=== PATIENT | female | born 1990 | race African-American/Black ===

== ENCOUNTER 2020-08-13 17:02 | Emergency (ER) | payer BC ==
[2020-08-13] MEDS ORDERED: ZIPRASIDONE MESYLATE 20 MG VIAL IM ONE (18:47)
[2020-08-13] MEDS ORDERED: ALUM-MAG HYDROXIDE-SIMETHICONE 200-200-20MG/5ML ORAL LIQD 30 ML PO PRN (18:49)
[2020-08-13] MEDS ORDERED: MAGNESIUM HYDROXIDE (MOM) ORAL LIQD UDC PO PRN (18:49)
[2020-08-13] MEDS ORDERED: ACETAMINOPHEN 325 MG TAB PO PRN (18:49)
[2020-08-13] MEDS ORDERED: WATER FOR INJ Sterile (PF) 10 ML ONE (19:16)
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
[2020-08-13 20:28] LABS: Bilirubin,Urine NEG (Negative); Blood,Urine NEG (Negative); Color,Urine Yellow (Yellow); Mucus,Urine 3+ /HPF
[2020-08-13 20:30] LABS: Amphetamine Screen,Urine Negative; Benzodiazepines Screen,Urine Negative; Cannabinoid Screen,Urine Negative; Cocaine Screen,Urine Negative; Methadone Screen,Urine Negative; Opiate Screen,Urine Negative
[2020-08-13 20:40] LABS: Basophils % (Auto) 0.6 % (0.0-1.8); Eosinophils % (Auto) 0.8 % (0.0-4.3); Hematocrit 44.7 % (30.3-42.9); Hemoglobin 15.6 gm/dl (10.1-14.3); Lymphocytes # (Auto) 1.2 K/mm3 (1.2-5.4); Lymphocytes % (Auto) 24.6 % (13.4-35.0); Mean Corpuscular HGB Conc 35 % (30-34); Mean Corpuscular Volume 103 fl (79-97); Monocytes # (Auto) 0.4 K/mm3 (0.0-0.8); Monocytes % (Auto) 8.1 % (0.0-7.3); Platelet Count 289 K/mm3 (140-440); Red Blood Count 4.32 M/mm3 (3.65-5.03); Red Cell Distribution Width 15.5 % (13.2-15.2)
[2020-08-13 21:08] LABS: Alanine Aminotransferase 18 units/L (7-56); Albumin 4.5 g/dL (3.9-5); Blood Urea Nitrogen 10 mg/dL (7-17); Calcium 8.8 mg/dL (8.4-10.2); Hemolysis Index 3
[2020-08-13 21:10] LABS: BUN/Creatinine Ratio 33
[2020-08-13] MEDS ORDERED: PHENYTOIN 100 MG CAPSULE.ER PO SCH (22:00)
[2020-08-14] MEDS ORDERED: LORazepam 2 MG/ML VIAL IM PRN (06:00)
[2020-08-14] MEDS ORDERED: ZIPRASIDONE MESYLATE 20 MG VIAL IM ONE (10:10)
[2020-08-14] MEDS ORDERED: WATER FOR INJ Sterile (PF) 10 ML ONE (10:12)
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
[2020-08-14 10:49] VITALS: BP 96/64
== END 2020-08-14 12:10 | disposition other institution (70) ==
LOC: ED 17:02
DX: R56.9 Unspecified convulsions (principal); F23 Brief psychotic disorder; F31.9 Bipolar disorder, unspecified
CPT/HCPCS: 36415; 80053; 80185; 80307; 81001; 84703; 85025; 96372; 99285; J2060; J3486; 80320; G0480

== ENCOUNTER 2020-08-30 14:32 | Inpatient (IN) | payer BC ==
--- NOTE | 2020-08-30 15:29 | Emergency Department Report ---
Blank Doc - Documentation Documentation: 29-year-old female that presents with bilateral leg swelling with pain. Left greater than right. Denies any trauma or injuries. 1- This initial assessment/diagnostic orders/clinical plan/ treatment(s) is/are subject to change based on pt's health status, clinical progression and re- assessment by fellow clinical providers in the ED. Further treatment and workup at subsequent clinical provers discretion. Patient/guardians urged not to elope from ED as their condition may be serious if not clinically assessed and managed. 2-labs 3-US doppler
--- NOTE | 2020-08-30 15:36 | XRay Report ---
CHEST 2 VIEWS INDICATION / CLINICAL INFORMATION: Jorge leg swelling. COMPARISON: None available. FINDINGS: SUPPORT DEVICES: None. HEART / MEDIASTINUM: No significant abnormality. LUNGS / PLEURA: No significant pulmonary or pleural abnormality. No pneumothorax. ADDITIONAL FINDINGS: No significant additional findings. IMPRESSION: 1. No acute findings. Signer Name: Arnold Jung MD Signed: 08/30/2020 3:32 PM Workstation Name: [id number]
--- NOTE | 2020-08-30 16:28 | Vascular Lab Report ---
DUPLEX DOPPLER LOWER EXTREMITY VEINS, BILATERAL INDICATION / CLINICAL INFORMATION: fransisco leg pain and swelling. TECHNIQUE: Duplex doppler imaging was performed through the veins of both lower extremities using venous olga anne and other maneuvers. COMPARISON: None available. FINDINGS: RIGHT COMMON FEMORAL VEIN: Negative. RIGHT FEMORAL VEIN: Negative. RIGHT POPLITEAL VEIN: Negative. RIGHT CALF VEINS: Negative. LEFT COMMON FEMORAL VEIN: Acute thrombus. LEFT FEMORAL VEIN: Acute thrombus. LEFT POPLITEAL VEIN: Acute thrombus. LEFT CALF VEINS: Acute thrombus. ADDITIONAL FINDINGS: None. IMPRESSION: 1. Long segment acute DVT left lower extremity 2. No DVT right lower extremity veins Signer Name: Aiden Chaves MD Signed: 08/30/2020 4:24 PM Workstation Name: [id number]
[2020-08-30 16:46] LABS: Basophils % (Auto) 0.4 % (0.0-1.8); Eosinophils # (Auto) 0.1 K/mm3 (0.0-0.4); Eosinophils % (Auto) 1.7 % (0.0-4.3); Hematocrit 37.6 % (30.3-42.9); Hemoglobin 13.3 gm/dl (10.1-14.3); Lymphocytes # (Auto) 1.1 K/mm3 (1.2-5.4); Lymphocytes % (Auto) 19.6 % (13.4-35.0); Mean Corpuscular HGB Conc 35 % (30-34); Mean Corpuscular Volume 102 fl (79-97); Monocytes # (Auto) 0.7 K/mm3 (0.0-0.8); Monocytes % (Auto) 12.5 % (0.0-7.3); Platelet Count 308 K/mm3 (140-440); Red Blood Count 3.67 M/mm3 (3.65-5.03); Red Cell Distribution Width 14.2 % (13.2-15.2)
[2020-08-30 17:06] LABS: INR 0.93 (0.87-1.13)
[2020-08-30 17:07] LABS: Partial Thromboplastin Time 24.9 Sec. (24.2-36.6)
[2020-08-30 17:09] LABS: Alanine Aminotransferase 17 units/L (7-56); Albumin 3.8 g/dL (3.9-5); BUN/Creatinine Ratio 22; Blood Urea Nitrogen 11 mg/dL (7-17); Calcium 8.5 mg/dL (8.4-10.2); Hemolysis Index 8
--- NOTE | 2020-08-30 18:18 | Emergency Department Report ---
ED Extremity Problem HPI - General Chief complaint: Extremity Problem,Nontraumatic Stated complaint: SWELLING TO BOTH LEGS Time Seen by Provider: 08/30/20 14:43 Source: patient Mode of arrival: Ambulatory Limitations: No Limitations - History of Present Illness Initial comments: 29-year-old female with history of seizure disorder, bipolar disorder, schi zophrenia, presents to ED with left leg swelling. Patient reports leg swelling x9 days. Patient states the swelling began following a 3-hour car ride from [place] to [place] in which she was sitting crosslegged during the car ride. Patient reports pain to the left leg and thigh and associated pins and needle sensation in her foot. She denies any chest pain. She does reports some mild dyspnea on exertion. She denies ever having COVID-19. She denies any fever or cough. She denies any prior history of blood clots. She denies taking any control. MD Complaint: extremity pain, extremity swelling -: days(s) (9) Location: left, lower extremity Quality: aching Consistency: intermittent Improves with: nothing Worsens with: nothing Associated Symptoms: shortness of breath. denies: chest pain, fever - Related Data Home Medications Medication Instructions Recorded Confirmed Last Taken Phenytoin Sodium Extended 300 mg PO DAILY 08/14/20 08/30/20 Unknown Benztropine [Cogentin] 1 mg PO QHS 08/30/20 08/30/20 Unknown Cyproheptadine [Periactin] 5 mg PO BID 08/30/20 08/30/20 Unknown OXcarbazepine [Trileptal] 75 mg PO QDAY 08/30/20 08/30/20 Unknown risperiDONE [RisperDAL] 2 mg PO QHS 08/30/20 08/30/20 Unknown Allergies Allergy/AdvReac Type Severity Reaction Status Date / Time No Known Allergies Allergy Unverified 08/13/20 17:44 ED Review of Systems ROS: Stated complaint: SWELLING TO BOTH LEGS Other details as noted in HPI Comment: All other systems reviewed and negative Constitutional: denies: chills, fever Respiratory: shortness of breath. denies: cough Cardiovascular: denies: chest pain Musculoskeletal: as per HPI Neurological: paresthesias ED Past Medical Hx - Past Medical History Previous Medical History?: Yes Hx Seizures: Yes Hx Psychiatric Treatment: Yes (Bipolar disorder schizophrenia) - Social History Smoking Status: Never Smoker Substance Use Type: None - Medications Home Medications: Home Medications Medication Instructions Recorded Confirmed Last Taken Type Phenytoin Sodium Extended 300 mg PO DAILY 08/14/20 08/30/20 Unknown History Benztropine [Cogentin] 1 mg PO QHS 08/30/20 08/30/20 Unknown History Cyproheptadine [Periactin] 5 mg PO BID 08/30/20 08/30/20 Unknown History OXcarbazepine [Trileptal] 75 mg PO QDAY 08/30/20 08/30/20 Unknown History risperiDONE [RisperDAL] 2 mg PO QHS 08/30/20 08/30/20 Unknown History ED Physical Exam - General Limitations: No Limitations General appearance: alert, in no apparent distress - Head Head exam: Present: atraumatic, normocephalic - Eye Eye exam: Present: normal appearance, EOMI - ENT ENT exam: Present: mucous membranes moist - Neck Neck exam: Present: normal inspection - Respiratory Respiratory exam: Present: normal lung sounds bilaterally. Absent: respiratory distress - Cardiovascular Cardiovascular Exam: Present: normal rhythm, tachycardia - GI/Abdominal GI/Abdominal exam: Present: soft. Absent: distended, tenderness - Extremities Exam Extremities exam: Present: calf tenderness, other (tenderness to left lower leg w/ edema present; L leg > R leg) - Neurological Exam Neurological exam: Present: alert, oriented X3. Absent: motor sensory deficit - Psychiatric Psychiatric exam: Present: normal affect, normal mood - Skin Skin exam: Present: warm, dry, intact, normal color ED Course Vital Signs 08/30/20 08/30/20 14:39 19:30 Temperature 98.4 F 97.8 F Pulse Rate 134 H 111 H Respiratory 22 17 Rate Blood Pressure 139/92 Blood Pressure 124/77 [Right] O2 Sat by Pulse 99 100 Oximetry - Consultations Consultation #1: 08/30/20 19:50 Spoke w/ Dr Rice. Will consult and evaluate for possible EKOS. ED Medical Decision Making - Lab Data Result diagrams: 08/30/20 16:31 08/30/20 16:31 - EKG Data -: EKG Interpreted by Sd EKG shows normal: sinus rhythm, axis, intervals, QRS complexes, ST-T waves Rate: tachycardia - EKG Data Interpretation: no acute changes - Radiology Data Radiology results: report reviewed, image reviewed - Medical Decision Making 29-year-old female with extensive left DVT and bilateral PEs. No apparent right heart strain on CT. Vital signs are stable. Patient is not hypoxic respiratory distress. Patient placed on a heparin drip. I spoke with vascular surgeon, Dr. Rice, who will be evaluating patient for possible EKOS. Patient will be admitted by hospitalist, Dr. Sandoval, for further management. - Differential Diagnosis DVT, PE Critical Care Time: Yes Critical care time in (mins) excluding proc time.: 35 Critical care attestation.: If time is entered above; I have spent that time in minutes in the direct care of this critically ill patient, excluding procedure time. Critical Care Time: 35 min ED Disposition Clinical Impression: Bilateral pulmonary embolism Left leg DVT Qualifiers: Chronicity: acute Disposition: DC-09 OP ADMIT IP TO THIS HOSP Is pt being admited?: Yes Condition: Critical Time of Disposition: 19:47
--- NOTE | 2020-08-30 19:21 | Cat Scan Report ---
CT angio chest INDICATION / CLINICAL INFORMATION: US + extensive DVT; SOB. TECHNIQUE: Axial CT images were obtained through the chest after injection of IV contrast. 3 plane MIP and/or 3D reconstructions were produced. All CT scans at this location are performed using CT dose reduction f or ALARA by means of automated exposure control. COMPARISON: None available. FINDINGS: PULMONARY ARTERIES: Bilateral pulmonary emboli are present which involves the right and left main pul monary arteries and more distal arteries. Large clot burden. RV to LV ratio is normal. HEART: No significant abnormality. MEDIASTINUM / ASHWIN: No significant abnormality. LUNGS: Lungs are clear No pleural effusion. No pneumothorax. ADDITIONAL FINDINGS: None. UPPER ABDOMEN: No acute findings. SKELETAL STRUCTURES: No significant osseous abnormality. IMPRESSION: 1. Bilateral pulmonary artery emboli with a large clot burden. No evidence for infarction. I informed the physician taking care of this patient of these findings at 6:16 Signer Name: Elroy Allen MD Signed: 08/30/2020 7:16 PM Workstation Name: [id number]
[2020-08-30] MEDS ORDERED: HEPARIN 10,000 UNITS/10 ML VIAL IV PRN (19:34)
[2020-08-30] MEDS ORDERED: HEPARIN 10,000 UNITS/10 ML VIAL IV ONE (19:34)
[2020-08-30 20:00] LABS: Bilirubin,Urine NEG (Negative); Blood,Urine SM (Negative); Color,Urine Straw (Yellow); Mucus,Urine FEW /HPF; Protein,Urine <15 mg/dL mg/dL (Negative); Urobilinogen,Urine < 2.0 mg/dL (<2.0)
[2020-08-30] MEDS ORDERED: HEPARIN/ 0.45% NACL DRIP 25,000 UNIT/500 ML BAG IV SCH (20:00)
--- NOTE | 2020-08-30 20:04 | History and Physical Report ---
History of Present Illness Chief complaint: My leg is swollen History of present illness: 29 YO Female with Seizure Disorder, Bipolar Disorder, Schizophrenia presents to ED for evaluation. Patient reports "my left leg is swollen". Patient states that she has experienced swelling and pain in her left leg over the past 1 week with persistent worsening symptoms over the same timeframe. Patient states that she experienced a 3-hour car ride from [facility] to [place] prior to the onset of swelling. Patient transported to [facility] via private vehicle for further care and evaluation of the aforementioned symptoms. The patient was seen and evaluated in the emergency department. All lab and imaging studies reviewed. Patient underwent bilateral lower extremity duplex and was found to have left lower extremity DVT. Patient underwent CT scan of the chest and was found to have bilateral pulmonary emboli. Patient admitted to [facility] and initiated on therapeutic anticoagulation. Patient denies fever, chills, chest pain, palpitations, productive cough, hematemesis, skin rash, recent ill contacts, or known exposure to COVID-19. No prior admission for review. All medication listed at time of admission has been reconciled. Interventional radiology service consulted in ED. Past History Past Medical History: seizures, other (See HPI) Past Surgical History: No surgical history, Other (Reviewed) Social history: single. denies: smoking, alcohol abuse, prescription drug abuse Family history: no significant family history, other (Reviewed) Medications and Allergies Allergies Allergy/AdvReac Type Severity Reaction Status Date / Time No Known Allergies Allergy Unverified 08/13/20 17:44 Home Medications Medication Instructions Recorded Confirmed Last Taken Type Phenytoin Sodium Extended 300 mg PO DAILY 08/14/20 08/14/20 Unknown History Active Meds: Active Medications Heparin Sodium (Porcine) (Heparin 10,000 Units/10 Ml Vial) 3,400 unit 40 unit/kg (3400 unit) IV Q6H PRN PRN Reason: Anti-Xa Assay < 0.1 units/ml Heparin Sodium/Sodium Chloride (Heparin/ 0.45% Nacl-25,000 Unit/500 Ml) 25,000 unit in 500 mls @ 26 mls/hr IV TITR SCOOBY; Protocol Review of Systems Constitutional: no weight loss, no weight gain, no fever, no sweats, no night sweats Ears, nose, mouth and throat: no ear pain, no tinnitis, no nose pain, no nasal discharge Breasts: no change in shape, no swelling Cardiovascular: no syncope, no shortness of breath Respiratory: no cough, no cough with sputum, no excessive sputum, no hemoptysis, no shortness of breath, no dyspnea on exertion, no congestion, no wheezing, no pleurisy, no pain, no pain on inspiration, no snoring Gastrointestinal: no abdominal pain, no nausea, no vomiting, no diarrhea, no constipation, no hematemesis, no coffee ground emesis Genitourinary Female: no pelvic pain, no flank pain, no dysuria, no urinary frequency Rectal: no pain, no incontinence, no bleeding Musculoskeletal: other (Left leg swelling), no neck stiffness, no neck pain, no shooting arm pain, no arm numbness/tingling, no low back pain, no shooting leg pain, no leg numbness/tingling, no redness of joints Integumentary: no rash, no pruritis, no redness, no jaundice, no boils Neurological: no head injury, no numbness, no seizures, no tremors, no ataxia Psychiatric: no anxiety, no change in sleep habits, no sleep disturbances, no insomnia, no change in appetite, no change in libido, no suicidal ideation Endocrine: no cold intolerance, no polyphagia, no polydipsia, no polyuria, no nocturia, no excessive sweating, no weight change Hematologic/Lymphatic: no easy bruising, no easy bleeding Allergic/Immunologic: no allergic rhinitis, no wheezing Exam - Constitutional Vitals: Temp Pulse Resp BP Pulse Ox 97.8 F 111 H 17 124/77 100 08/30/20 19:30 08/30/20 19:30 08/30/20 19:30 08/30/20 19:30 08/30/20 19:30 General appearance: Present: no acute distress, well-nourished - EENT Eyes: Present: PERRL ENT: hearing intact, clear oral mucosa - Neck Neck: Present: supple, normal ROM - Respiratory Respiratory effort: normal Respiratory: bilateral: CTA - Cardiovascular Heart Sounds: Present: S1 & S2. Absent: rub, click - Extremities Extremities: pulses symmetrical Extremity abnormal: edema, other (Left leg edema) Peripheral Pulses: within normal limits - Abdominal General gastrointestinal: Present: soft, non-tender, non-distended, normal bowel sounds Female genitourinary: Present: normal - Integumentary Integumentary: Present: clear, warm, dry - Musculoskeletal Musculoskeletal: gait normal, strength equal bilaterally - Psychiatric Psychiatric: appropriate mood/affect, intact judgment & insight - Neurologic Neurologic: CNII-XII intact, moves all extremities HEART Score - HEART Score Troponin: Troponin T < 0.010 ng/mL (0.00-0.029) 08/30/20 16:31 Results - Labs CBC & Chem 7: 08/30/20 16:31 08/30/20 16:31 Labs: Abnormal lab results 08/30/20 08/30/20 08/30/20 Range/Units 16:31 16:31 19:32 MCV 102 H (79-97) fl MCH 36 H (28-32) pg MCHC 35 H (30-34) % [place] % (Auto) 12.5 H (0.0-7.3) % Lymph # (Auto) 1.1 L (1.2-5.4) K/mm3 Creatinine 0.5 L (0.6-1.2) mg/dL Albumin 3.8 L (3.9-5) g/dL Ur Specific [place] 1.054 H (1.003-1.030) Urine WBC (Auto) 20.0 H (0.0-6.0) /HPF Assessment and Plan - Patient Problems (1) Bilateral pulmonary embolism Current Visit: Yes Status: Acute Plan to address problem: Therapeutic anticoagulation, CT angio chest, supplemental oxygen, pulse oximetry, interventional radiology consulted, echocardiogram ordered and is pending at time of admission. (2) Left leg DVT Current Visit: Yes Status: Acute Qualifiers: Chronicity: acute Plan to address problem: Bilateral lower extremity duplex, therapeutic anticoagulation, supportive care, interventional radiology consulted. (3) Bipolar 1 disorder Current Visit: No Status: Acute Plan to address problem: Continue prehospital medication, supportive care, (4) DVT prophylaxis Current Visit: Yes Status: Acute Plan to address problem: SCDs bilateral lower extremities while in bed, continue therapeutic anticoagulation.
[2020-08-30] MEDS ORDERED: ALBUTEROL 2.5 MG/3 ML NEBU IH PRN (20:05)
[2020-08-30] MEDS ORDERED: MORPHINE 2 MG/1 ML INJ IV PRN (22:03)
[2020-08-30] MEDS ORDERED: risperiDONE 1 MG TAB PO ONE (22:22)
[2020-08-30] MEDS ORDERED: BENZTROPINE 1 MG TAB PO ONE (22:23)
[2020-08-30] MEDS ORDERED: PHENYTOIN 100 MG CAPSULE.ER PO ONE (22:24)
--- NOTE | 2020-08-30 22:32 | Event Note ---
Date: 08/30/20 29 year old female with submassive pulmonary embolism, tachycardia, and large clot burden in the right pulmonary arteries and smaller clot burden in the left pulmonary arteries. Has extensive left lower extremity deep venous thrombosis. Heparin drip. NPO after MN except sips of water with meds. Will discuss treatment of pulmonary embolism with patient tomorrow and likely IVC filter placement.
[2020-08-30] MEDS ORDERED: CYPROHEPTADINE 4 MG TAB PO ONE (23:00)
[2020-08-31] MEDS ORDERED: MORPHINE 2 MG/1 ML INJ IV PRN (01:37)
[2020-08-31] MEDS ORDERED: HYDROcodone/ACETAMINOPHEN 5-325 MG TAB PO PRN (01:39)
[2020-08-31] MEDS ORDERED: PHENYTOIN 100 MG CAPSULE.ER PO SCH (10:00)
[2020-08-31] MEDS ORDERED: PHENYTOIN SODIUM 300 MG PO SCH (10:00)
--- NOTE | 2020-08-31 10:54 | Consultation ---
History of Present Illness - Reason for Consult Consult date: 08/31/20 Pulmonary embolism Requesting physician: HORTENSIA BELTRAN - History of Present Illness 29-year-old female with past medical history of Seizure Disorder, Bipolar Disorder, Schizophrenia presents to the ED for evaluation for left leg pain and shortness of breath with exertion. Patient states that she has experienced swelling and pain in her left leg over the past 1 week with persistent worsening symptoms over the same timeframe. Patient states that she experienced a 3-hour car ride from [facility] to [place] prior to the onset of swelling. Patient underwent bilateral lower extremity duplex and was found to have left lower extremity DVT. Patient underwent CT scan of the chest and was found to have bilateral pulmonary emboli. Patient admitted to [facility] and initiated on therapeutic anticoagulation. Vascular consulted for pulmonary embolism and DVT. Patient has palpable pedal pulses. She has 2+ swelling of the left lower extremity versus the right lower extremity which has no significant swelling. She reports that when she ambulates for short period she has significant heaviness and tightness of her calf. Regarding her respiratory issues, patient reports that when she ambulates for more than about 5 to 10 feet she becomes shortness of breath. At rest, she is not short of breath, but she is significantly tachycardic into the 110s and with some exertion her heart rate raises into the 120s. Review of her CT scan demonstrates that she has right heart strain with her RV to LV ratio greater than 1. Her BNP and troponins are not elevated. Past History Past Medical History: seizures, other (See HPI) Past Surgical History: No surgical history, Other (Reviewed) Social history: single. denies: smoking, alcohol abuse, prescription drug abuse Family history: no significant family history, other (Reviewed) Medications and Allergies Allergies Allergy/AdvReac Type Severity Reaction Status Date / Time No Known Allergies Allergy Unverified 08/13/20 17:44 Home Medications Medication Instructions Recorded Confirmed Last Taken Type Phenytoin Sodium Extended 300 mg PO DAILY 08/14/20 08/30/20 Unknown History Benztropine [Cogentin] 1 mg PO QHS 08/30/20 08/30/20 Unknown History Cyproheptadine [Periactin] 5 mg PO BID 08/30/20 08/30/20 Unknown History OXcarbazepine [Trileptal] 75 mg PO QDAY 08/30/20 08/30/20 Unknown History risperiDONE [RisperDAL] 2 mg PO QHS 08/30/20 08/30/20 Unknown History Active Meds: Active Medications Hydrocodone Bitart/Acetaminophen (Hydrocodone/Acetaminophen 5-325 Mg Tab) 1 each PO Q6H PRN PRN Reason: Pain, Moderate (4-6) Last Admin: 08/31/20 01:57 Dose: 1 each Documented by: Albuterol (Albuterol 2.5 Mg/3 Ml Nebu) 2.5 mg IH Q3HRT PRN PRN Reason: Shortness Of Breath Heparin Sodium (Porcine) (Heparin 10,000 Units/10 Ml Vial) 3,400 unit 40 unit/kg (3400 unit) IV Q6H PRN PRN Reason: Anti-Xa Assay < 0.1 units/ml Heparin Sodium/Sodium Chloride (Heparin/ 0.45% Nacl-25,000 Unit/500 Ml) 25,000 unit in 500 mls @ 26 mls/hr IV TITR SCOOBY; Protocol Last Titration: 08/31/20 08:32 Dose: 1,200 units/hr, 24 mls/hr Documented by: Morphine Sulfate (Morphine 2 Mg/1 Ml Inj) 2 mg IV Q3H PRN PRN Reason: Pain, Moderate (4-6) Phenytoin (Phenytoin 100 Mg Capsule.Er) 300 mg PO DAILY [facility] Sodium Chloride (Sodium Chloride 0.9% 10 Ml Flush Syringe) 10 ml IV BID [facility] Last Admin: 08/30/20 23:01 Dose: 10 ml Documented by: Sodium Chloride (Sodium Chloride 0.9% 10 Ml Flush Syringe) 10 ml IV PRN PRN PRN Reason: LINE FLUSH Review of Systems All systems: negative (see HPI) Exam - Constitutional Vitals: Temp Pulse Resp BP Pulse Ox 98.2 F 105 H 15 120/76 100 08/31/20 08:00 08/31/20 06:41 08/31/20 06:41 08/31/20 06:41 08/31/20 06:41 General appearance: Present: no acute distress - EENT Eyes: Present: EOM intact ENT: hearing intact - Respiratory Respiratory effort: other (Respiratory rate increased, anxious) - Extremities Extremities: pulses intact, normal temperature, normal color Extremity abnormal: edema (Left lower extremity 2+ to 3+) - Psychiatric Psychiatric: appropriate mood/affect, cooperative, other (Anxious) Results - Labs CBC & Chem 7: 08/30/20 16:31 08/30/20 16:31 Labs: Abnormal lab results 08/30/20 08/30/20 08/30/20 Range/Units 16:31 16:31 19:32 MCV 102 H (79-97) fl MCH 36 H (28-32) pg MCHC 35 H (30-34) % [place] % (Auto) 12.5 H (0.0-7.3) % Lymph # (Auto) 1.1 L (1.2-5.4) K/mm3 Heparin Anti-Xa Level (0.3-0.7) U.I./ml Creatinine 0.5 L (0.6-1.2) mg/dL Albumin 3.8 L (3.9-5) g/dL Ur Specific [place] 1.054 H (1.003-1.030) Urine WBC (Auto) 20.0 H (0.0-6.0) /HPF 08/31/20 Range/Units 05:20 MCV (79-97) fl MCH (28-32) pg MCHC (30-34) % [place] % (Auto) (0.0-7.3) % Lymph # (Auto) (1.2-5.4) K/mm3 Heparin Anti-Xa Level 1.19 H (0.3-0.7) U.I./ml Creatinine (0.6-1.2) mg/dL Albumin (3.9-5) g/dL Ur Specific [place] (1.003-1.030) Urine WBC (Auto) (0.0-6.0) /HPF Assessment and Plan 29-year-old female with past medical history of schizophrenia and bipolar who presents with submassive pulmonary embolism and extensive left lower extremity DVT. Patient's submassive pulmonary embolism is risk ratified as intermediate. Her pulmonary embolism is predominantly right-sided with a distal main, lobar, and segmental extension. The left side has segmental pulmonary embolisms. Discussed options of care with patient including mortality benefit she would receive from pulmonary embolism treatment, and shortness of breath improvement. I also discussed placement of an IVC filter at the time of pulmonary embolism treatment to prevent further thrombotic burden to her lungs. I also discussed with her that if she improves over the next few days, we can consider doing a thrombectomy of her left lower extremity, but that the most important focus would be the pulmonary embolism in her lungs. She is a very anxious person and may opt for oral anticoagulation alone despite explanation of the benefits of treatment. Risks, benefits, and alternatives di scussed. We will have another discussion with her later today. Keep n.p.o. and on heparin until further discussion.
--- NOTE | 2020-08-31 10:58 | Progress Note ---
Assessment and Plan Assessment and plan: 29 YO Female with Seizure Disorder, Bipolar Disorder, Schizophrenia presents to ED for evaluation. Patient reports "my left leg is swollen". Patient states that she has experienced swelling and pain in her left leg over the past 1 week with persistent worsening symptoms over the same timeframe. Patient states that she experienced a 3-hour car ride from [facility] to [place] prior to the onset of swelling. Due to persistent symptoms, she presented to the hospital for further evaluation. Patient underwent bilateral lower extremity duplex and was found to have left lower extremity DVT. Patient underwent CT scan of the chest and was found to have bilateral pulmonary emboli. Patient admitted to [facility] and initiated on therapeutic anticoagulation. Interventional radiology consulted for further evaluation 08/31. On heparin drip for PE. Vitals stable. Possible IVC filter placement as per IR. Assessment and Plan #LLE DVT with bilateral pulmonary embolism -Continue IV heparin -Plan for IV filter as per IR/vascular -Echocardiogram ordered #Bipolar disorder Psych to follow up DVT ppx - On heparin drip History Interval history: Vitals stable Hospitalist Physical - Physical exam Narrative exam: VITAL SIGNS: Reviewed. GENERAL: Awake HEAD: No signs of head trauma. EYES: Pupils are equal. Extraocular motions intact. MOUTH: Oropharynx is normal. NECK: No adenopathy, no JVD. CHEST: Chest with diminished breath sounds bilaterally. No wheezes, rales, or rhonchi. CARDIAC: normal S1 and S2, without murmurs, gallops, or rubs. ABDOMEN: Soft, non tender and non distended. No rebound or guarding, and no masses palpated. Bowel Sounds normal. MUSCULOSKELETAL: No edema NEUROLOGIC EXAM: Alert and oriented x3. No focal neurologic deficits SKIN: No obvious lesions - Constitutional Vitals: Temp Pulse Resp BP Pulse Ox 98.2 F 105 H 15 120/76 100 08/31/20 08:00 08/31/20 06:41 08/31/20 06:41 08/31/20 06:41 08/31/20 06:41 HEART Score - HEART Score Troponin: Troponin T < 0.010 ng/mL (0.00-0.029) 08/30/20 16:31 Results - Labs CBC & Chem 7: 08/30/20 16:31 08/30/20 16:31 Labs: Laboratory Last Values WBC 5.7 K/mm3 (4.5-11.0) 08/30/20 16: RBC 3.67 M/mm3 (3.65-5.03) 08/30/20 16: Hgb 13.3 gm/dl (10.1-14.3) 08/30/20 16:31 Hct 37.6 % (30.3-42.9) 08/30/20 16: MCV 102 fl (79-97) H 08/30/20 16: MCH 36 pg (28-32) H 08/30/20 16:31 MCHC 35 % (30-34) H 08/30/20 16: RDW 14.2 % (13.2-15.2) 08/30/20 16: Plt Count 308 K/mm3 (140-440) 08/30/20 16: Lymph % (Auto) 19.6 % (13.4-35.0) 08/30/20 16: [place] % (Auto) 12.5 % (0.0-7.3) H 08/30/20 16: Eos % (Auto) 1.7 % (0.0-4.3) 08/30/20 16: Baso % (Auto) 0.4 % (0.0-1.8) 08/30/20 16: Lymph # (Auto) 1.1 K/mm3 (1.2-5.4) L 08/30/20 16: [place] # (Auto) 0.7 K/mm3 (0.0-0.8) 08/30/20 16: Eos # (Auto) 0.1 K/mm3 (0.0-0.4) 08/30/20 16: Baso # (Auto) 0.0 K/mm3 (0.0-0.1) 08/30/20 16: Seg Neutrophils % 65.8 % (40.0-70.0) 08/30/20 16: Seg Neutrophils # 3.7 K/mm3 (1.8-7.7) 08/30/20 16: PT 12.3 Sec. (12.2-14.9) 08/30/20 16: INR 0.93 (0.87-1.13) 08/30/20 16: APTT 24.9 Sec. (24.2-36.6) 08/30/20 16:31 Heparin Anti-Xa Level 1.19 U.I./ml (0.3-0.7) H 08/31/20 05:20 Sodium 137 mmol/L (137-145) 08/30/20 16:31 Potassium 4.1 mmol/L (3.6-5.0) 08/30/20 16:31 Chloride 100.4 mmol/L (98-107) 08/30/20 16:31 Carbon Dioxide 30 mmol/L (22-30) 08/30/20 16:31 Anion Gap 11 mmol/L 08/30/20 16:31 BUN 11 mg/dL (7-17) 08/30/20 16:31 Creatinine 0.5 mg/dL (0.6-1.2) L 08/30/20 16:31 Estimated GFR > 60 ml/min 08/30/20 16:31 BUN/Creatinine Ratio 22 % 08/30/20 16:31 Glucose 99 mg/dL (65-100) 08/30/20 16:31 Calcium 8.5 mg/dL (8.4-10.2) 08/30/20 16:31 Total Bilirubin < 0.20 mg/dL (0.1-1.2) 08/30/20 16:31 AST 16 units/L (5-40) 08/30/20 16:31 ALT 17 units/L (7-56) 08/30/20 16:31 Alkaline Phosphatase 109 units/L (35-129) 08/30/20 16:31 Troponin T < 0.010 ng/mL (0.00-0.029) 08/30/20 16:31 NT-Pro-B Natriuret Pep 140.2 pg/mL (0-450) 08/30/20 16:31 Total Protein 6.8 g/dL (6.3-8.2) 08/30/20 16:31 Albumin 3.8 g/dL (3.9-5) L 08/30/20 16:31 Albumin/Globulin Ratio 1.3 % 08/30/20 16:31 HCG, Qual Negative (Negative) 08/30/20 16:31 Urine Color Straw (Yellow) 08/30/20 19:32 Urine Turbidity Clear (Clear) 08/30/20 19:32 Urine pH 6.0 (5.0-7.0) 08/30/20 19:32 Ur Specific [place] 1.054 (1.003-1.030) H 08/30/20 19:32 Urine Protein <15 mg/dl mg/dL (Negative) 08/30/20 19:32 Urine Glucose (UA) Neg mg/dL (Negative) 08/30/20 19:32 Urine Ketones Neg mg/dL (Negative) 08/30/20 19:32 Urine Blood Sm (Negative) 08/30/20 19:32 Urine Nitrite Neg (Negative) 08/30/20 19:32 Urine Bilirubin Neg (Negative) 08/30/20 19:32 Urine Urobilinogen < 2.0 mg/dL (<2.0) 08/30/20 19:32 Ur Leukocyte Esterase Lg (Negative) 08/30/20 19:32 Urine WBC (Auto) 20.0 /HPF (0.0-6.0) H 08/30/20 19:32 Urine RBC (Auto) 1.0 /HPF (0.0-6.0) 08/30/20 19:32 U Epithel Cells (Auto) 7.0 /HPF (0-13.0) 08/30/20 19:32 Urine Mucus Few /HPF 08/30/20 19:32 Active Medications - Current Medications Current Medications: Generic Name Dose Route Start Last Admin Trade Name Freq PRN Reason Stop Dose Admin Hydrocodone Bitart/Acetaminophen 1 each 08/31/20 01:39 08/31/20 01:57 Hydrocodone/Acetaminophen 5-325 Mg Tab PO 1 each Q6H PRN Administration Pain, Moderate (4-6) Albuterol 2.5 mg 08/30/20 20:05 Albuterol 2.5 Mg/3 Ml Nebu IH Q3HRT PRN Shortness Of Breath Heparin Sodium (Porcine) 3,400 unit 08/30/20 19:34 Heparin 10,000 Units/10 Ml Vial 40 unit/kg (3400 unit) IV Q6H PRN Anti-Xa Assay < 0.1 units/ml Heparin Sodium/Sodium Chloride 25,000 unit in 500 mls @ 26 mls/hr 08/30/20 20:00 08/31/20 08:32 Heparin/ 0.45% Nacl-25,000 Unit/500 Ml IV 1,200 units/hr TITR SCOOBY 24 mls/hr Titration Protocol 1,300 UNITS/HR Morphine Sulfate 2 mg 08/31/20 01:37 Morphine 2 Mg/1 Ml Inj IV Q3H PRN Pain, Moderate (4-6) Phenytoin 300 mg 08/31/20 10:00 Phenytoin 100 Mg Capsule.Er PO DAILY SCOOBY Sodium Chloride 10 ml 08/30/20 22:00 08/30/20 23:01 Sodium Chloride 0.9% 10 Ml Flush Syringe IV 10 ml BID SCOOBY Administration Sodium Chloride 10 ml 08/30/20 20:05 Sodium Chloride 0.9% 10 Ml Flush Syringe IV PRN PRN LINE FLUSH
[2020-08-31 12:17] VITALS: BP 123/79
--- NOTE | 2020-08-31 14:40 | Discharge Summary ---
Providers - Providers Date of Admission: 08/30/20 20:05 Date of discharge: 08/31/20 Attending physician: KATHLEEN QUEZADA 08/30/20 19:45 Consult to Physician [CONS] Stat Comment: Dr. Sim spoke with Dr. Holden @ 1941 Consulting Provider: ROXIE HOLDEN Physician Instructions: Reason For Exam: DVT/PE Primary care physician: [facility] Hospitalization Condition: Critical Hospital course: 29 YO Female with Seizure Disorder, Bipolar Disorder, Schizophrenia presents to ED for evaluation. Patient reports "my left leg is swollen". Patient states that she has experienced swelling and pain in her left leg over the past 1 week with persistent worsening symptoms over the same timeframe. Patient states that she experienced a 3-hour car ride from [facility] to [place] prior to the onset of swelling. Due to persistent symptoms, she presented to the hospital for further evaluation. Patient underwent bilateral lower extremity duplex and was found to have left lower extremity DVT. Patient underwent CT scan of the chest and was found to have bilateral pulmonary emboli. Patient admitted to [facility] and initiated on therapeutic anticoagulation. Interventional radiology consulted for further evaluation 08/31. On heparin drip for PE. Vitals stable. Possible IVC filter placement as per IR. Patient refuses to have IVC filter placement. She refuses echocardiogram as well. She is requesting to go home. I have advised her to stay in the hospital to have close monitoring till tomorrow as she is still slightly tachycardic. She refuses. I will prescribe Eliquis 30-day supply for her should she leave AMA. 2 PM Patient left AMA despite understanding the risk of leaving the hospital. Disposition: [id number] LEFT AGAINST MED ADVICE Time spent for discharge: 35 mins - Discharge Diagnoses (1) Bilateral pulmonary embolism Status: Acute (2) Left leg DVT Status: Acute Qualifiers: Chronicity: acute (3) Bipolar 1 disorder Status: Acute Core Measure Documentation - Palliative Care Palliative Care/ Comfort Measures: Not Applicable - Core Measures Any of the following diagnoses?: none Exam - Physical Exam Narrative exam: VITAL SIGNS: Reviewed. GENERAL: Awake HEAD: No signs of head trauma. EYES: Pupils are equal. Extraocular motions intact. MOUTH: Oropharynx is normal. NECK: No adenopathy, no JVD. CHEST: Chest with diminished breath sounds bilaterally. No wheezes, rales, or rhonchi. CARDIAC: normal S1 and S2, without murmurs, gallops, or rubs. ABDOMEN: Soft, non tender and non distended. No rebound or guarding, and no masses palpated. Bowel Sounds normal. MUSCULOSKELETAL: No edema NEUROLOGIC EXAM: Alert and oriented x3. No focal neurologic deficits SKIN: No obvious lesions - Constitutional Vitals: Temp Pulse Resp BP Pulse Ox 99.4 F 108 H 15 123/79 99 08/31/20 12:00 08/31/20 12:11 08/31/20 12:11 08/31/20 12:00 08/31/20 12:11 Plan Follow up with: PRIMARY CARE, [Primary Care Provider] - 3-5 Days Prescriptions: Apixaban [Eliquis starter pack] 5 mg PO BID 30 Days tab.ds.pk
[2020-08-31] MEDS ORDERED: risperiDONE 1 MG TAB PO ONE (22:04)
[2020-08-31] MEDS ORDERED: BENZTROPINE 1 MG TAB PO ONE (22:05)
[2020-08-31] MEDS ORDERED: CYPROHEPTADINE 4 MG TAB PO ONE (22:05)
[2020-08-31] MEDS ORDERED: PHENYTOIN 100 MG CAPSULE.ER PO ONE (22:07)
== END 2020-08-31 13:15 | disposition left against medical advice (07) | DRG 299 ==
LOC: ED 14:32 → IMCU 20:05
PROVIDERS: ADMIT Internal Medicine; ATTEND Internal Medicine
DX: I82.402 Acute embolism and thrombosis of unspecified deep veins of left lower extremity (principal); I26.99 Other pulmonary embolism without acute cor pulmonale; G40.909 Epilepsy, unspecified, not intractable, without status epilepticus; F31.9 Bipolar disorder, unspecified; F20.9 Schizophrenia, unspecified; R00.0 Tachycardia, unspecified; Z53.20 Procedure and treatment not carried out because of patient's decision for unspecified reasons; Z53.29 Procedure and treatment not carried out because of patient's decision for other reasons
CPT/HCPCS: 36415; 71046; 71275; 80053; 81001; 83880; 84484; 84703; 85025; 85220; 85301; 85305; 85520; 85610; 85730; 87086; 93005; 93970; 96374; G0378; J1644; J2270; Q9967

== ENCOUNTER 2020-12-31 09:35 | Outpatient (CLI) | payer BC ==
--- NOTE | 2020-12-31 13:14 | Vascular Lab Report ---
DUPLEX DOPPLER LOWER EXTREMITY VEINS, BILATERAL INDICATION: LOCALIZED SWEELING,MASS,LUMP LOWER LIMB MELLY./R22.43. TECHNIQUE: Duplex doppler imaging was performed through the veins of both lower extremities using ve nous compression and other maneuvers. COMPARISON: 08/30/2020. FINDINGS: Right Common femoral vein: Negative. Right Superficial femoral vein: Negative. Right Popliteal vein: Negative. Right Calf veins: Negative. Left Common femoral vein: Negative. Left Superficial femoral vein: Positive for chronic appearing recanalized DVT. Left Popliteal vein: Positive for chronic appearing recanalized DVT. Left Calf veins: Negative. Additional findings: None. IMPRESSION: There is residual chronic appearing recanalized thrombus from the proximal left superficial vein to the left popliteal vein. No acute DVT is appreciated. Signer Name: Freddie Nye Jr, MD Signed: 12/31/2020 1:10 PM Workstation Name: [id number]
== END 2020-12-31 09:36 | disposition home or self-care (01) ==
LOC: VAS 09:35
PROVIDERS: ATTEND Surgery Vascular Surgery
DX: R22.43 Localized swelling, mass and lump, lower limb, bilateral (principal)
CPT/HCPCS: 93970